=== PATIENT | female | born 1995 | race Caucasian/White ===

== ENCOUNTER 2022-04-20 14:00 | Emergency (ER) | payer BC, MEDICAID, SELFPAY ==
[2022-04-20 14:16] VITALS: BP 148/77; PULSE 83; RESP 16; TEMP 36.7; O2SAT 100
[2022-04-20] MEDS: SODIUM CHLORIDE 0.9% IV 1,000 ML 999 ML IV CONT (14:50)
--- NOTE | 2022-04-20 14:51 | ED.GENADULT ---
HPI - General Adult General Chief complaint: Unspecified Stated complaint: drank too much last night, doesn't feel right now Time Seen by Provider: 04/20/22 14:25 History of Present Illness HPI narrative: Patient is a 27-year-old female here for evaluation of generalized feeling unwell since drinking last night. Patient states that she had about 18 shots of tequila and today she feels nauseated and not right , with paresthesias in her hands and feet. Patient states that she was celebrating her friend's birthday last evening. Denies history of alcohol withdrawal seizures. She is also 6 days late on her menstrual cycle, is currently sexually active and is not on control. She has 1 child at home. No abdominal pain, vaginal bleeding, fevers or chills, diarrhea or constipation, weakness or confusion. Related Data Allergies Allergy/AdvReac Type Severity Reaction Status Date / Time No Known Allergies Allergy Unverified 01/04/18 04:21 Review of Systems Review of Systems: Gen: Denies fevers or chills Eyes: Denies eye pain or visual change ENT: Denies congestion Respiratory: Denies shortness of breath or cough CV: Denies chest pain or palpitations GI: Reports nausea and vomiting. denies abdominal pain : denies burning, urgency, frequency or hematuria Musculoskeletal: Reports tingling in her hands and feet. denies back pain or muscle pain Neuro: Denies numbness, tingling, weakness or focal weakness Skin: Denies rash Except as documented, all other systems reviewed and negative Exam Narrative: APPEARANCE: Well appearing, no pain in distress, well-nourished. Head: Normocephalic and atraumatic. EYES: PERRLA/EOMI, conjunctivae clear NOSE: No nasal drainage EARS: External ear normal in appearance THROAT: Oropharynx is clear. Mucous membranes are moist. NECK: Supple. No adenopathy, no masses. RESPIRATORY: Airway patent, respirations nonlabored. Clear to auscultation bilaterally, no rales, rhonchi, wheezing. CARDIOVASCULAR: Regular rate and rhythm without murmurs, rubs, or gallops. ABDOMINAL: Normoactive bowel sounds. Soft, nontender, nondistended. No rebound tenderness or guarding. MUSCULOSKELETAL: Extremities are warm and well-perfused. Moves all extremities well. No edema. NEURO: Normal speech. No focal neurologic deficits. SKIN: Skin is warm and dry. No rashes. PSYCHIATRIC: Normal affect/mood. Course Vital Signs Vital signs: Vital Signs Temperature 98.0 F 04/20/22 14:16 Pulse Rate 83 04/20/22 14:16 Respiratory Rate 16 04/20/22 14:16 Blood Pressure 148/77 H 04/20/22 14:16 Pulse Oximetry 100 04/20/22 14:16 Oxygen Delivery Room Air 04/20/22 14:16 Temperature 98.0 F 04/20/22 14:16 Pulse Rate 70 04/20/22 15:51 Respiratory Rate 15 04/20/22 15:51 Blood Pressure 110/66 04/20/22 15:51 Pulse Oximetry 100 04/20/22 15:51 Oxygen Delivery Room Air 04/20/22 14:16 Medical Decision Making MDM Narrative Medical decision making narrative: 27 year old female here for evaluation of nausea, vomiting, and paresthesias in her hands and feet this morning after drinking 18 shots of tequila last evening. Patient is nontoxic-appearing upon time of evaluation and her vital signs are normal. She has no abdominal tenderness whatsoever. Electrolytes are normal. UA is likely contaminated with epithelial cells and trace leuks, not having urinary symptoms to suggest UTI. Urine negative. no leukocytosis. Normal lipase. Patient was rehydrated in the ED and given antiemetics with improvement of her symptoms. Likely related to alcohol use last evening. She was given reasons to return to the ED and she voiced understanding. Encouraged her to follow-up with her PCP next week. Vital Signs Vital Signs: Vital Signs Temperature 98.0 F 04/20/22 14:16 Pulse Rate 83 04/20/22 14:16 Respiratory Rate 16 04/20/22 14:16 Blood Pressure 148/77 H 04/20/22 14:16 Pulse Oximetry 100 04/20/22 14:
[2022-04-20 15:09] LABS: Basophils Percent Auto 0.6 % (0.2-1.2); Eosinophils Absolute Auto 0.1 K/mm3 (0-0.3); Eosinophils Percent Auto 1.2 % (0-4.4); Hematocrit 38.3 % (37.0-47.0); Hemoglobin 12.7 g/dL (12.0-15.0); Immature Granulocyte Absolute 0.02 K/mm3 (0.00-0.031); Immature Granulocyte Percent A 0.3 % (0-0.5); Lymphocytes Absolute Auto 2.38 K/mm3 (0.9-3.2); Lymphocytes Percent Auto 36.4 % (18.3-44.2); Mean Corpuscular HGB Conc 33.2 g/dl (32-36); Mean Corpuscular Volume 87.4 fl (80-100); Mean Platelet Volume 8.9 fl (7.4-10.4); Monocytes Absolute Auto 0.5 K/mm3 (0.1-0.6); Monocytes Percent Auto 8.1 % (2.6-8.5); Neutrophils Absolute Auto 3.5 K/mm3 (1.3-6.7); Neutrophils Percent Auto 53.4 % (45.5-73.1); Platelet Count Result 218 k/mm3 (150-375); Red Blood Count 4.38 M/mm3 (4.2-5.4); Red Cell Distribution Width 15.6 % (11.5-14.5); White Blood Count 6.5 K/mm3 (4.5-10.0)
[2022-04-20 15:23] LABS: Alanine Aminotransferase 25 U/L (6-35); Albumin Level 4.6 g/dL (3.5-5.1); Alkaline Phosphatase 69 U/L (38-126); Anion Gap 13 mmol/L (8-16); Aspartate Amino Transferase 40 U/L (14-36); Bilirubin,Total 0.4 mg/dL (0.2-1.3); Blood Urea Nitrogen 5 mg/dL (7-17); Calcium 9.6 mg/dL (8.4-10.2); Carbon Dioxide 24 mmol/L (22-30); Chloride 102 mmol/L (98-107); Estimated CRCL calculation 96 ml/min; Estimated Glomerular Filt Rate > 60; Glucose 88 mg/dL (65-110); Lipase 59 U/L (23-300); Magnesium 1.8 mg/dL (1.6-2.3); Phosphorus 2.5 mg/dL (2.5-4.5); Potassium 3.8 mmol/L (3.4-5.0); Sodium 139 mmol/L (137-145)
[2022-04-20 15:51] VITALS: BP 110/66; PULSE 70; RESP 15; O2SAT 100
[2022-04-20 16:04] LABS: Appearance Urine Clear (Clear); Bilirubin Urine Negative (Negative); Blood Urine Negative (Negative); Color Urine Yellow (Yellow); Glucose Urine UA Negative (Negative); Ketones Urine Negative (Negative); Leukocyte Esterase Ur Trace LEU/UL (Negative); Nitrate Urine Negative (Negative); Protein Urine Negative (Negative); Urobilinogen Urine 0.2 mg/dL (<2.0); pH Urine 8.5 (5.0-9.0)
[2022-04-20] MEDS: ONDANSETRON INJ 4 MG/2 ML VIAL IV PUSH (16:12)
[2022-04-20 16:30] LABS: RBC Urine 0-2 /hpf (0-2); Squamous Epithelial Cell Urine Moderate /hpf (Few); WBC Urine 0-3 /hpf
[2022-04-20 16:35] LABS: Add Urine Microscopic? YES
== END 2022-04-20 16:56 | disposition home or self-care (01) ==
PROVIDERS: Physician Assistant; Emergency Provider Emergency Medicine
DX: R11.2 Nausea with vomiting, unspecified (principal)
CPT/HCPCS: 36415; 80053; 81001; 81025; 83690; 83735; 84100; 85025; 96361; 96374; 99284; J2405; J7030